=== PATIENT | male | born 2000 | race Caucasian/White ===

== ENCOUNTER 2019-05-27 19:28 | Emergency (ER) | payer OTHER ==
[~2019-05-27] VITALS: Ht 172.7 cm; Wt 99.8 kg
[2019-05-27 19:32] VITALS: BP 150/93; Ht 172.7 cm; Wt 99.8 kg
== END 2019-05-27 20:55 | disposition home or self-care (01) ==
LOC: ED 19:28
DX: K04.6 Periapical abscess with sinus (principal)
CPT/HCPCS: J0696; J1885